=== PATIENT | female | born 1975 | race Caucasian/White ===

== ENCOUNTER 2017-12-02 12:45 | Emergency (ER) | payer MEDICAID ==
[~2017-12-02] VITALS: Ht 154.9 cm; Wt 91.2 kg
[2017-12-02 12:55] VITALS: BP 120/69
--- NOTE | 2017-12-02 16:21 | NUR ---
Pt ambulated to bed 2.
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
--- NOTE | 2017-12-02 16:49 | NUR ---
Patient discharged with v/s stable. Written and verbal after care instructions given and explained. Patient verbalized understanding. Ambulatory with to car. All questions addressed prior to discharge. Advised to follow up with PMD.
[2017-12-02 16:50] VITALS: BP 116/65
== END 2017-12-02 16:49 | disposition home or self-care (01) ==
LOC: MED 12:45
DX: S66.106A Unspecified injury of flexor muscle, fascia and tendon of right little finger at wrist and hand level, initial encounter (principal); W45.8XXA Other foreign body or object entering through skin, initial encounter; Y93.89 Activity, other specified; Y92.89 Other specified places as the place of occurrence of the external cause; Y99.8 Other external cause status
CPT/HCPCS: 73130; 99284

== ENCOUNTER 2018-10-07 21:09 | Emergency (ER) | payer MEDICAID ==
[~2018-10-07] VITALS: Ht 154.9 cm; Wt 85.7 kg
[2018-10-07 21:12] VITALS: BP 148/78
--- NOTE | 2018-10-07 21:18 | NUR ---
PT AMBUALTORY TO ER ERROL W/ STEADY GAIT IN STABLE CONDITION.
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
--- NOTE | 2018-10-07 22:28 | NUR ---
PT TAKEN TO BED 12
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
--- NOTE | 2018-10-07 22:59 | NUR ---
Dr. Mclean evaluating patient at bedside.
[2018-10-07] MEDS ORDERED: KETOROLAC 30 MG/ML VIAL IM ONE (23:30)
[2018-10-07 23:47] VITALS: BP 118/74
== END 2018-10-07 23:47 | disposition home or self-care (01) ==
LOC: MED 21:09
DX: S80.11XA Contusion of right lower leg, initial encounter (principal); Y04.0XXA Assault by unarmed brawl or fight, initial encounter; Y93.89 Activity, other specified; Y92.89 Other specified places as the place of occurrence of the external cause; Y99.8 Other external cause status
CPT/HCPCS: 73590; 96372; 99283; J1885

== ENCOUNTER 2020-04-05 13:03 | Emergency (ER) | payer OTHER, MEDICAID ==
[~2020-04-05] VITALS: Ht 12.7 cm; Wt 0.5 kg
[2020-04-05 13:15] VITALS: BP 122/73
--- NOTE | 2020-04-05 13:20 | NUR ---
pt to er bed 7
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
[2020-04-05 13:32] VITALS: BP 115/68
--- NOTE | 2020-04-05 13:32 | NUR ---
Patient discharged with v/s stable. Written and verbal after care instructions given and explained. Patient alert, oriented and verbalized understanding of instructions. Ambulatory with steady gait. All questions addressed prior to discharge. ID band removed. Patient advised to follow up with PMD. Rx of Ibu,Flexeril given. Patient educated on indication of medication including possible reaction and side effects. Opportunity to ask questions provided and answered.
== END 2020-04-05 13:32 | disposition home or self-care (01) ==
LOC: MED 13:03
DX: S16.1XXA Strain of muscle, fascia and tendon at neck level, initial encounter (principal); M79.10 Myalgia, unspecified site; X58.XXXA Exposure to other specified factors, initial encounter; Y93.89 Activity, other specified; Y92.89 Other specified places as the place of occurrence of the external cause; Y99.8 Other external cause status
CPT/HCPCS: 99282